=== PATIENT | female | born 1950 | race Caucasian/White ===

== ENCOUNTER 2022-11-05 09:13 | Emergency (ER) | payer MEDICARE, SELFPAY ==
[2022-11-05 09:15] VITALS: BP 154/82; PULSE 85; RESP 17; TEMP 37.9; O2SAT 96; BMI 30.7
--- NOTE | 2022-11-05 09:47 | ED.VIS.DYS ---
HPI History of Present Illness Chief Complaint: Shortness of Breath Detail of Chief Complaint: Cough and fever and shortness of breath Informant: patient Narrative Narrative: Patient presents with complaint of shortness of breath and cough and fever x3 days. Patient states that multiple family members have had colds. Patient has had her COVID shot and flu shot. She denies chest pain. Patient denies sore throat. She denies urinary symptoms. Overall she just does not feel well. [facility] Medical History (Updated 11/05/22 @ 11:[address] Yana Hung, DO) Asthma HTN (hypertension) Home Medications benzonatate 200 mg capsule 200 mg PO TID PRN cough #20 caps 11/05/22 [Rx Last Taken Unknown] prednisone 20 mg tablet 20 mg PO BID #10 tabs 11/05/22 [Rx Last Taken Unknown] Allergy/AdvReac Type Severity Reaction Status Date / Time codeine Allergy Vomiting Verified 11/05/22 09:14 morphine Allergy HYPOTENSION Verified 11/05/22 09:14 Social History Smoking Status: Never smoker ROS ROS ED Review of Systems ROS Unobtainable: other Constitutional Constitutional ED: Reports lethargy; Denies chills, fever(s), sweats or weight loss Eyes Eyes: Denies blurry vision, change in vision or diplopia ENT ENT ED: Denies rhinorrhea or sore throat Cardiovascular Cardiovascular: Denies chest pain, orthopnea or racing heartbeat Respiratory/Chest Respiratory/Chest: Reports cough, dyspnea and dyspnea on exertion; Denies orthopnea or sputum Gastrointestinal Gastrointestinal: Denies abdominal pain, diarrhea, nausea or vomiting Genitourinary Genitourinary ED: Denies dysuria, hematuria or urinary frequency Musculoskeletal Musculoskeletal: Denies arthralgias, back pain, myalgias or neck pain Integumentary Denies abscess, Abrasions or rash Neurologic Neurologic: Denies headache(s) or weakness Psychiatric Psychiatric: Denies anxiety, depression or suicidal thoughts Endocrine Endocrinology: Denies polydipsia, polyphagia or polyuria Hematologic/Lymphatic Hematologic/Lymphatic: Denies easy bleeding, easy bruising or lymphadenopathy Allergic/Immunologic Allergic/Immunologic ED: Denies mouth swelling, tongue swelling or urticaria EXAM Physical Exam Const Vital Signs: 11/05/22 09:15 11/05/22 09:54 11/05/22 10:01 Temperature 100.3 F H Temperature Source Temporal Pulse Rate 85 88 Respiratory Rate 17 18 Respiratory Effort Short of Breath Labored Respiratory Depth Normal Respiratory Pattern Tachypnea Normal Blood Pressure 154/82 H Blood Pressure Mean 106 Pulse Ox 96 Oxygen Delivery Method Room Air Room Air Positive well nourished and well developed General Appearance ED: well developed and NAD HEENT Reports TM's clear and moist mucous membranes normocephalic and atraumatic; Negative for trauma or tenderness Tympanic Membrane ED: Yes TM's clear Eyes PERRL and EOMs intact bilaterally General Eye ED: Negative for pale conjunctiva or scleral icterus Neck no lymphadenopathy, supple and no JVD General: Negative for tenderness Chest Wall inspection of chest normal and palpation of chest normal Chest: Negative for tenderness Resp normal respiratory effort Resp Narrative: Patient with expiratory wheezes bilaterally. No significant tachypnea. No sensory muscle use or retractions. No conversational dyspnea. Effort and Inspection: Negative for respiratory distress or pain with movement Auscultation: Negative for rhonchi, wheezes or diminished lung sounds Cardio regular rate, regular rhythm, S1 normal heart sound, S2 normal heart sound and no murmurs Peripheral Pulses: pulses 2+ throughout GI normal to inspection, nondistended, normoactive bowel sounds, soft to palpation, non-tender, non-distended and no masses Back/Spine no CVA tenderness and no thoracic nor lumbar tenderness Extremity normal to inspection General Extremety ED: Negative for edema General Extremity: Negative for edema Neuro oriented x3, CN's II-XII intact bilaterally, no sensory deficits noted and gait normal Sensorium / Orientation: awake, alert, oriented to person, oriented to place and oriented to time Motor Exam: strength 5/5 throughout and strength abnormal Psych mental status grossly normal Skin no rashes or lesions noted and no wounds MDM MDM MDM Narrative Medical decision making narrative: Patient was given a DuoNeb aerosol and started on prednisone. Chest x-ray was unremarkable. COVID and influenza rapid testing was negative. At this point I suspect a viral asthmatic bronchitis. Patient will be started on prednisone and given Tessalon Perles for cough. Patient advised to follow-up with primary care physician or her appliance counselor within next 3 to 5 days. She is advised to return if increasing shortness of breath or condition should worsen anyway. Patient was reevaluated at 11:30 AM and her wheezing is markedly improved and she feels well. Patient breathing is easy and unlabored. Patient is safe for discharge. Lab Data Attestation: I reviewed the patient's lab results. Radiography Diagnostic Testing: Clinical Impression(s) from Imaging Studies Chest X-Ray 11/05/22 10:04 IMPRESSION: Degenerative changes, as described above. No demonstrated acute cardiopulmonary process. Electronically Signed: Bret Villagran MD at 10:43 EST Reading Location ID and State: [id number] / [place] , Service support , 1 view chest x-ray obtained interpreted by myself no acute disease process. Radiology felt there was some degenerative changes otherwise nothing acute. Discharge Plan Triage Chief Complaint: Shortness of Breath ED Provider: Yana Hung Dx/Rx/DC Orders Clinical Impression: Acute asthmatic bronchitis Instructions: ED Bronchitis with Wheezing (Adult) Prescriptions: New prednisone 20 mg tablet 20 mg PO BID Qty: 10 0RF benzonatate 200 mg capsule 200 mg PO TID PRN (Reason: cough) Qty: 20 0RF Primary Care Provider: Jeanine Zavala Referrals: [facility] Doctor,Out of [Non-Staff] - Disposition Disposition: Home, Self Care
[2022-11-05] MEDS: predniSONE 20 MG Tablet 40 MG PO (09:56)
[2022-11-05] MEDS: Ipratropium/Albuterol Sulfate 3 ML AMPUL.NEB INHALATION (09:57)
[2022-11-05 10:01] VITALS: PULSE 88; RESP 18
--- NOTE | 2022-11-05 10:04 | RAD_ITS ---
STUDY: X-RAY CHEST REASON FOR EXAM: Female, 72 years old. Cough, fever TECHNIQUE: Single AP portable view of the chest. COMPARISON: None. FINDINGS: The lungs are clear and expanded. There is no demonstrated pleural abnormality. Normal size heart. There are calcified mediastinal lymph nodes. Normal visualized pulmonary arteries. There is atherosclerotic calcification of the aortic arch with tortuosity. There is demineralization of the osseous structures. Normal visualized ribs, clavicles, and shoulders. There is no demonstrated abnormality of the visualized soft tissue structures of the upper abdomen. RAD/Chest 1 View (Portable) IMPRESSION: Degenerative changes, as described above. No demonstrated acute cardiopulmonary process. Electronically Signed: Bret Villagran MD at 10:43 [facility] ,
[2022-11-05 11:49] VITALS: PULSE 84; RESP 17; O2SAT 97
== END 2022-11-05 11:53 | disposition home or self-care (01) ==
PROVIDERS: Emergency Provider Emergency Medicine; Visit Provider Emergency Medicine
DX: J20.9 Acute bronchitis, unspecified (principal); J45.909 Unspecified asthma, uncomplicated
CPT/HCPCS: 71045; 87428; 94640; 99282